=== PATIENT | male | born 1960 | race African-American/Black ===

== ENCOUNTER 2016-12-11 12:22 | Inpatient (IN) ==
[2016-12-11] MEDS ORDERED: DILTIAZEM 50 MG/10 ML VIAL IV STA (12:43)
[2016-12-11] MEDS ORDERED: DILTIAZEM 50 MG/10 ML VIAL IV ONE (12:49)
[2016-12-11] MEDS ORDERED: DILTIAZEM 100 MG VIAL.ADD IV ONE (12:49)
[2016-12-11 12:57] LABS: Basophils # 0.1 10*3/uL (0.0-0.2); Basophils % 0.7 % (0.0-0.8); Eosinophils # 0.2 10*3/uL (0.0-0.87); Eosinophils % 3.2 % (0.00-10.9); Hematocrit 41.6 VOL% (42.0-52.0); Hemoglobin 14.4 GM/DL (14.0-18.0); Immature Granulocytes % 0.6 %; Immature Granulocytes Absolute 0.04 #; Lymphocytes # 3.2 10*3/uL (1.4-4.0); Lymphocytes % 44.5 % (21.2-54.2); Mean Corpuscular HGB Conc 34.6 GM/DL (32-36); Mean Corpuscular Hemoglobin 30 PG (27-34); Mean Corpuscular Volume 85.4 FL (87-102); Mean Platelet Volume 9.9 FL (9.6-12.0); Monocytes # 0.8 10*3/uL (0.11-0.8); Monocytes % 10.6 % (1.7-12.7); Neutrophils # 2.9 10*3/uL (1.4-7.4); Neutrophils % 40.4 % (38.7-73.9); Platelet Count 217 T/CUMM (130-400); Red Blood Count 4.87 MC/CUMM (3.8-5.5); Red Cell Distribution Width 12.7 % (9.3-17.3); White Blood Count 7.2 T/CUMM (4-12)
--- NOTE | 2016-12-11 12:59 | Emergency Department Note ---
Luis Julian Brittany, am scribing for, and in the presence of, Yossi Kiser MD 12: 52. Margi Julian James D, MD, personally performed the services described in this documentation, ascribed by Kaylen Smith in my presence, and it is both accurate and complete . Arrival - Arrival Stated Complaint: atri flutter Mode of Arrival: Ambulatory Limitations: No Limitations Source: Patient, RN Notes Reviewed - History of Present Illness HPI Narrative: This is a 56 y/o black male, who presents to the ED for further evaluation of possible atrial flutter. He states he noticed the Sx started 4 days ago while getting his hair cut. He states 4 days ago while getting a haircut he became diaphoretic and nausea and then vomited. He denies any chest pain. He denies any blood in the vomit. He is not taking any blood thinners. He states today he was being seen at his PCP's office, Dr. Umana's office when he noticed his heart was "naa beating fast.". Pt has no other complaints/pain in the ED at this time. Pt has a PMHx of HTN. Pt denies a surgical hx. Pt denies a family medical Hx. Pt denies a social hx. Onset (ago): day(s) (Started 4 days ago) Consistency: constant Severity: moderate, severe Allergies/Adverse Reactions: Allergies Allergy/AdvReac Type Severity Reaction Status Date / Time Influenza Virus Vaccines AdvReac Weakness Verified 12/11/16 12:46 Review of System - Review of System 12 point system: reviewed and no additional remarkable complaints except as stated - Review of System Constitutional: Present: diaphoresis Cardiovascular: Present: other (Tachycardiac). Absent: chest pain Gastrointestinal: Present: nausea, vomiting Medical,Surgical,& Family Hx - Medical History Cardio: History of: Hypertension Exam Vital Signs: Vital Signs Temperature 98.6 F 12/11/16 12:40 Pulse Rate 143 H 12/11/16 12:40 Respiratory Rate 18 12/11/16 12:40 Blood Pressure 154/118 12/11/16 12:40 O2 Sat by Pulse Oximetry 96 12/11/16 12:40 GENERAL: This is a well-nourished well-developed black male in no apparent distress. VITAL SIGNS: Reviewed HEENT: Head is atraumatic and normocephalic. Pupils are equal round react to light. Extraocular movements are intact. Oropharynx is benign with moist mucous membranes. NECK: Neck is soft and supple without tenderness. There are no masses. There is no lymphadenopathy. LUNGS: Lungs are clear to auscultation. Chest rises symmetrically. There is no chest wall tenderness. CV: Heart is rapid rate regular without murmurs rubs or gallops. ABDOMEN: Abdomen is soft, nontender to palpation. There are no abdominal abnormal masses palpated. There is no organomegaly. Bowel sounds are present and active. SKIN: Skin is warm and dry. No rash. EXTREMITIES: Patient has full range of motion without tenderness. There is no pedal edema. NEUROLOGIC: Awake alert and oriented 4. Cranial nerves II through XII are grossly intact. Motor is 5 over 5 in all extremities bilaterally. Course Course Narrative: Patient was given Cardizem bolus and infusion while in the emergency department. Results - Labs CBC & BMP: 12/11/16 12:46 12/11/16 12:46 Lab Results: I have reviewed the patients labs Labs: Laboratory Tests 12/11/16 12/11/16 12:46 12:46 Troponin I < 0.015 B-Natriuretic Peptide 172 H - EKG EKG results: interpreted by ERMD - Impressions EKG: Atrial flutter with varying degrees of block, rate 134, nonspecific ST-T wave changes, left axis deviation. Nonspecific intraventricular conduction delay. - Diagnostic Findings Procedure: Chest x-ray: image reviewed by me Critical Care Time Critical Care Time: No Disposition Clinical Impression: Atrial flutter, Essential hypertension Case discussed with: patient Condition: Stable
[2016-12-11] MEDS: DILTIAZEM INJ 100 MG in SODIUM CHLORIDE 0.9% 100 ML IV SCH (13:02)
[2016-12-11 13:15] LABS: PT Patient Result 10.7 SECS; Partial Thromboplastin Time 28.7 SECS (0-40)
--- NOTE | 2016-12-11 13:23 | XRay Report ---
Portable chest Date: 12/11/2016 Clinical history: Shortness of breath Comparison: 02/05/2014 Technique: Portable AP sitting chest Findings: The heart is borderline in size. Expiratory chest with interval resolution of the right middle lobe pneumonia. Stable mediastinum with no acute osseous findings. Impression: Limited expiratory chest. Resolution of previously noted right middle lobe pneumonia. PROCEDURE INTERPRETED AT [facility] DEPARTMENT OF RADIOLOGY Final Report Signed by: Dr. Naomy Marquez
[2016-12-11 13:30] LABS: Alanine Aminotransferase 19 U/L (16-61); Albumin 3.7 G/DL (3.4-5.0); Alkaline Phosphatase 71 U/L (45-117); Aspartate Amino Transferase 14 U/L (0-37); Blood Urea Nitrogen 25 MG/DL (7-18); Calcium 9.4 MG/DL (8.5-10.1); Glucose 98 MG/DL (74-106); Magnesium 2.4 MG/DL (1.8-2.4); Osmolality,Calculated 286.1 MOS/KG (273-304); Potassium 3.6 MMOL/L (3.5-5.1); Sodium 142 MMOL/L (136-145); Total Protein 7.3 G/DL (6.4-8.3); Troponin I Only < 0.015 NG/ML (0.00-0.045)
--- NOTE | 2016-12-11 13:31 | EKG Report ---
Stationary ECG Study [facility] ER Test Date: 12/11/2016 12:31:30 PM Pat Name: MARIE MURRELL Department: Room: Gender: M Surgical Pathologist: : 1960 Requested by: Yossi Mane Order Number: [id number] Reading MD: WALT VASQUEZ Intervals [place] Rate: 134 P: 999 AL: 165 QRS: -25 QRSD: 120 T: -47 QT: 328 QTc: 407 Interpretive Statements ATRIAL FLUTTER LEFT AXIS DEVIATION T WAVE ABNORMALITY, Electronically Signed On 12-11-16 15:44:45 CDT by WALT VASQUEZ [email or web address]
[2016-12-11 13:37] LABS: Barbiturates Screen,Urine Negative (Negative); Benzodiazepines Screen,Urine Negative (Negative); Cannabinoid Screen,Urine Negative (Negative); Opiate Screen,Urine Negative (Negative); Phencyclidine Screen,Urine Negative (Negative)
[2016-12-11 13:38] LABS: Urine Color Yellow (Yellow)
[2016-12-11 13:39] LABS: Apearance,Urine Clear (Clear); Bilirubin,Urine 0 mg/dL (Negative); Blood, Urine Trace mg/dL (Negative); Glucose,Urine (UA) Negative (Negative); Ketones,Urine Negative (Negative); Nitrite,Urine Negative (Negative); Protein,Urine Negative
[2016-12-11 13:40] LABS: Mucus,Urine Slight /LPF (Occasional); RBC,Urine 0-3 /HPF (0-4); WBC,Urine 0-2 /HPF (0-6)
[2016-12-11] MEDS ORDERED: MORPHINE 2 MG/1 ML SYRINGE IV PRN (15:48)
[2016-12-11] MEDS ORDERED: ONDANSETRON 4 MG/2 ML VIAL IV PRN (15:48)
[2016-12-11] MEDS ORDERED: ACETAMINOPHEN 325 MG TABLET PO PRN (15:48)
[2016-12-11] MEDS ORDERED: ENOXAPARIN 40 MG/0.4 ML SYRINGE SUBCUT SCH (16:00)
--- NOTE | 2016-12-11 16:05 | Hospitalist History & Physical ---
<Tera Nieves - Last Filed: 12/11/16 15:26> Assessment and Plan - Time spent with patient Time spent with patient: Greater than 30 minutes (1) Atrial flutter with rapid ventricular response Status: Acute Assessment and plan: 56-year-old Vietnamese male with risk factors significant for: Hypertension, family history obesity. Presents to the ED today from his PCP office for further evaluation of atrial flutter with RVR. Started on Cardizem drip in ER with little effect in part due to patient's anxiety. Admit to telemetry. Echocardiogram has been ordered. Cardiology has been consulted. We appreciate the assistance. Current Visit: Yes (2) Anxiety Status: Acute Assessment and plan: Patient became very anxious and upset after hearing that he needs to stay in the hospital. Consider anxiolytics. Current Visit: Yes (3) Essential hypertension Status: Acute Assessment and plan: Continue home medications. Continue to monitor BP and adjust medications accordingly. Given the patient's atrial flutter, consider rate reducing agents and anticoagulation in addition to vasodilators. Current Visit: Yes History of Present Illness Chief complaint: atrial flutter with RVR History of present illness: Mr. Ramos is a 56 year old male with a past medical history significant for hypertension who presents to the ED today from his PCP's office for further evaluation of atrial flutter with RVR. 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 He states that he initially became diaphoretic with nausea and vomiting while getting a haircut four days ago. He waited until Saturday to call is PCP, Dr. Umana, who couldn't see him until this morning. Upon seeing his PCP , the patient was found to be in atrial flutter and was sent directly to the [facility] ED for further evaluation. On arrival at the ED, the patient was confirmed to be in atrial flutter with RVR and was started on a cardizem infusion. The patient denies headache, chest pain, palpitations, syncope, shortness of breath , fatigue, current nausea or vomiting, edema. The patient did note that he has been told he has a heart murmur but does not recall which murmur was identified. After discussing the patient's situation with him, he became quite upset and tearful stating he "knew it was badder than they told him". CXR is negative for any cardiopulmonary process. EKG shows atrial flutter with left axis deviation and T wave abnormality. Lab work shows WBC 7.2, RBC 4.7, hemoglobin 14.4, hematocrit 41.6, platelet 217, INR 1.0, sodium 142, potassium 3.6, chloride 107, BUN 25, creatinine 1.60, troponin I <0.015, BNP 172. Urinalysis is negative for infection. UDS is negative. After discussion with Dr. Kiser, ER physician, and Dr. Vora, admitting physician, the patient will be admitted for further evaluation and treatment. CODE STATUS was discussed; patient is a full code. Home medications have be reviewed and reconciled. Home Medications Medication Instructions Recorded Confirmed Type Amlodipine Besylate [Amlodipine 5 mg PO QAM 12/11/16 12/11/16 History Besylate] Aspirin EC Tab 81 mg PO QOTHER DAY 12/11/16 12/11/16 History Allergies Allergy/AdvReac Type Severity Reaction Status Date / Time Influenza Virus Vaccines AdvReac Weakness Verified 12/11/16 12:46 Medical,Surgical,& Family Hx - Medical History Cardio: History of: Hypertension - Family History Family History: Reports;: Family Hypertension, Family Stroke - Social History Smoking Status: Never smoker Frequency of Alcohol Use: None Type of Drug Use: None Marital Status: Single Lives With:: Significant Other Functional capacity: independent ambulation 12 point system: reviewed and no additional remarkable complaints except as stated Exam - Constitutional Vitals: Period Temp Pulse Resp BP Sys/Liang Pulse Ox Last 24 Hr 98.6 F 143 18 154/118 96 Exam: General appearance: overweight, disheveled - Head Head exam: Present: normocephalic, atraumatic - Eye Eye exam: Present: EOMI. Absent: conjunctival injection, nystagmus Pupils: Present: JESICA, normal accommodation - ENT ENT exam: Present: normal exam, normal external ear exam - Neck Neck exam: Present: normal inspection. Absent: lymphadenopathy, tenderness, thyromegaly - Respiratory Respiratory exam: Present: clear to auscultation bilaterally. Absent: rales, rhonchi, wheezes - Cardiovascular Cardiovascular exam: Present: atrial flutter with RVR. Absent: carotid bruit, gallop, rubs - GI/Abdominal GI/Abdominal exam: Present: normal bowel sounds. Absent: ascites, distended, mass - Extremities Exam Extremities exam: Present: normal inspection, normal capillary refill. Absent: edema - Back Exam Back exam: Absent: CVA tenderness (L), CVA tenderness (R) - Neurological Exam Neurological exam: Present: alert, oriented X3, CN II-XII intact, reflexes normal - Psychiatric Psychiatric exam: Present: anxiety - Skin Skin exam: Present: normal color, warm, dry Results - Labs CBC & BMP: 12/11/16 12:46 12/11/16 12:46 Lab Results: I have reviewed the past 24 hour labs - EKG EKG results: interpreted by TERESO (Atrial flutter with RVR) - Diagnostic Findings Procedure: Chest x-ray: image reviewed by me, report reviewed by me (Negative) <Frankie Vora - Last Filed: 12/11/16 17:45> History of Present Illness History of present illness: Patient seen and examined independently of CLAIMS CLERK Sorenson, agree with history, assessment and plan as documented. Admitted with atrial flutter with uncontrolled rate. Cardiology consulted. On dilt infusion. Also started on po dilt and eliquis. Exam - Constitutional Vitals: Period Temp Pulse Resp BP Sys/Liang Pulse Ox Last 24 Hr 98.6 F 57-143 17-18 136-163/86-118 96-98 Results - Labs CBC & BMP: 12/11/16 12:46 12/11/16 12:46
[2016-12-11] MEDS ORDERED: POTASSIUM CHLORIDE 20 MEQ TABLET PO PRN (16:56)
[2016-12-11] MEDS ORDERED: DILTIAZEM CD 240 MG CAPSULE PO SCH (17:00)
--- NOTE | 2016-12-11 17:35 | Cardiology Consult Note ---
Assessment and Plan - Time spent with patient Time spent with patient: Greater than 30 minutes (Due to assessment, plan, and documentation.) (1) Atrial flutter with rapid ventricular response Status: Acute Assessment and plan: See plan of care listed below. Current Visit: Yes (2) Essential hypertension Status: Chronic Assessment and plan: See plan of care listed below. Current Visit: Yes (3) Anxiety Status: Acute Current Visit: Yes History of Present Illness - Data of Consult Patient: new to practice Consult date: 12/11/16 Requesting Physician: Tera Nieves Primary care physician: Gil Perkins - Consult Narrative Reason for consult: new onset atrial flutter History of present illness: Express Clerk: new to Dr. Fried PCP: Dr. Umana Mr. Ramos is being seen in the Emergency Department, room #20. Mr. Ramos is a 56 y/o BM with a history of hypertension. Risk factors are significant for: sedentary lifestyle, obesity, hypertension. He has a family history of strokes and hypertension. He is a lifetime nonsmoker. 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 He denies a history of diabetes, hyperlipidemia, cancer, prior stroke, prior HI, or prior seizures. He reports he has been taking blood pressure medication for the past 6 years. Mr. Ramos presented to the emergency room today from Dr. Perkins's office for further evaluation of abnormal EKG which revealed atrial flutter with rapid ventricular response. Upon arrival to our facility, he was noted to have heart rates in the 140s. He was started on IV cardizem drip and admitted to hospital medicine and we were consulted to see him. Mr. Ramos reports that this past Saturday, he was at the [facility] getting his hair cut when he had a sudden onset hot flash, broke out in a sweat, and became nauseated and vomited. He remained nauseated and he had associated palpitations. He denies chest pain, headache, dizziness, lightheadedness, shortness of breath, fatigue, or BLE edema. He denies a history of epistaxis, melena, hematochezia, hematuria, hempoptysis. He tells me that he waited until Saturday to call his PCP but could not get an appointment until today. He continues to feel palpitations. He is not routinely followed by a carry all driver but does report that he had a stress test approximately 14-15 years ago because of his job requirements. Upon arrival to the emergency room, he was noted to have a stable H&H of 14.4 and 41.6. His potassium is 3.6 and we will replace this. His creatinine is 1.6 , magnesium 2.4. BNP is 172. Urine drug screen is negative and urinalysis is unremarkable. We will continue with IV diltiazem for rate control. We will go ahead and start him on oral diltiazem in an attempt to better control his rate. His rates are running between 80s-100s but with the slightest exertion, his rate will jump up to the 130s-140s. ASSESSMENT/PLAN: 1. ATRIAL FLUTTER WITH RVR -continue IV Cardizem, titrating for heart rate less than 100. Start Cardizem CD 240 mg p.o. daily, starting now. We will go ahead and start him on anticoagulation with Eliquis 5 mg p.o. twice daily. CHADSVASC score is 1. We will hold him n.p.o. after midnight in anticipation of possible SADI and cardioversion tomorrow if he is not better rate controlled or has not converted to normal sinus rhythm. Echocardiogram is pending. We will also check lipid panel in the morning. 2. HYPERTENSION - Mildly elevated presently. We will continue home dose of Norvasc in addition to Cardizem. We will continue to monitor and adjust as needed. CC: Frankie Vora MD - Home Medications and Allergies Home Medications: Home Medications Medication Instructions Recorded Confirmed Type Amlodipine Besylate [Amlodipine 5 mg PO QAM 12/11/16 12/11/16 History Besylate] Aspirin EC Tab 81 mg PO QOTHER DAY 12/11/16 12/11/16 History Allergies/Adverse Reactions: Allergies Allergy/AdvReac Type Severity Reaction Status Date / Time Influenza Virus Vaccines AdvReac Weakness Verified 12/11/16 12:46 12 point system: reviewed and no additional remarkable complaints except as stated Medical,Surgical,& Family Hx - Medical History Cardio: History of: Hypertension - Family History Family History: Reports;: Family Hypertension, Family Stroke - Social History Smoking Status: Never smoker Frequency of Alcohol Use: None Type of Drug Use: None Physical Examination Vital Signs Temp Pulse Resp BP Pulse Ox 98.6 F 143 H 18 154/118 96 12/11/16 12:40 12/11/16 12:40 12/11/16 12:40 12/11/16 12:40 12/11/16 12:40 Exam: General appearance: Pleasant and cooperative. Overweight, no acute distress. Head exam: Present: normal inspection, normocephalic, atraumatic. Absent: hematoma, laceration Eye exam: Present: EOMI. Absent: conjunctival injection, nystagmus, periorbital swelling, scleral icterus, laceration to eyelids Pupils: Present: PERRL. Absent: constricted, dilated, fixed, irregular, unequal ENT exam: Present: normal exam, normal external ear exam Neck exam: Present: normal inspection. Absent: lymphadenopathy, meningismus, tenderness, thyromegaly, carotid bruit Respiratory exam: Present: clear to auscultation bilaterally. Absent: accessory muscle use, chest wall tenderness, rales, rhonchi, wheezing. Cardiovascular exam: Present: Irregular rate and rhythm. Absent: gallop, JVD, rubs, murmur GI/Abdominal exam: Present: normal bowel sounds, soft. Absent: distended, firm , guarding, hernia, mass, tenderness, rebound. Extremities exam: Present: normal inspection, normal capillary refill. Upper extremity pulses 2+. Lower extremity pulses 2+. Absent: calf tenderness, edema Musculoskeletal: Present: No Fluid Collection, No Pain, Normal Range of Motion Back exam: Present: normal inspection. Absent: muscle spasm, vertebral tenderness Neurological exam: Present: alert, oriented X3, grossly intact without resting or essential tremor Psychiatric exam: Present: normal affect, normal mood Skin exam: Present: normal color, warm, dry, intact. Absent: cyanosis, diaphoretic, rash, urticaria Result/EKG - Labs CBC & BMP: 12/11/16 12:46 12/11/16 12:46 Lab Results: I have reviewed the past 24 hour labs Labs: Laboratory Results - last 24 hr 12/11/16 12/11/16 12/11/16 12:46 12:46 12:46 WBC 7.2 RBC 4.87 Hgb 14.4 Hct 41.6 L MCV 85.4 L MCH 30 MCHC 34.6 RDW 12.7 Plt Count 217 MPV 9.9 Neut % (Auto) 40.4 Lymph % (Auto) 44.5 [place] % (Auto) 10.6 Eos % (Auto) 3.2 Baso % (Auto) 0.7 Neut # (Auto) 2.9 Lymph # (Auto) 3.2 [place] # (Auto) 0.8 Eos # (Auto) 0.2 Baso # (Auto) 0.1 Immature Gran % 0.6 Nucleated RBC % 0.0 Immature Gran # 0.04 Nucleated RBCs # 0.00 Immature Plt Fraction 0.0 INR 1.0 PT Patient/Control Mix 10.7 Circ Anticoag PTT 28.7 Sodium 142 Potassium 3.6 Chloride 107 Carbon Dioxide 28 Anion Gap 10.6 BUN 25 H Creatinine 1.60 H GFR Calculation 75 BUN/Creatinine Ratio 15.00 Glucose 98 Calculated Osmolality 286.1 Calcium 9.4 Magnesium 2.4 Total Bilirubin 0.50 AST 14 ALT 19 Alkaline Phosphatase 71 Troponin I < 0.015 B-Natriuretic Peptide Total Protein 7.3 Albumin 3.7 Globulin 3.6 H Albumin/Globulin Ratio 1.0 L Urine Color Urine Appearance Urine pH Ur Specific [place] Urine Protein Urine Glucose (UA) Urine Ketones Urine Blood Urine Nitrate Urine Bilirubin Urine Urobilinogen Urine Leukocytes Urine RBC Urine WBC Urine Mucus Ur Culture Indicated? Urine Opiates Screen Ur Barbiturates Screen Ur Phencyclidine Scrn U Amphetamine/Methamph U Benzodiazepines Scrn U Cocaine Metab Screen U Cannabinoids Screen 12/11/16 12/11/16 12/11/16 12:46 12:46 12:46 WBC RBC Hgb Hct MCV MCH MCHC RDW Plt Count MPV Neut % (Auto) Lymph % (Auto) [place] % (Auto) Eos % (Auto) Baso % (Auto) Neut # (Auto) Lymph # (Auto) [place] # (Auto) Eos # (Auto) Baso # (Auto) Immature Gran % Nucleated RBC % Immature Gran # Nucleated RBCs # Immature Plt Fraction INR PT Patient/Control Mix Circ Anticoag PTT Sodium Potassium Chloride Carbon Dioxide Anion Gap BUN Creatinine GFR Calculation BUN/Creatinine Ratio Glucose Calculated Osmolality Calcium Magnesium Total Bilirubin AST ALT Alkaline Phosphatase Troponin I B-Natriuretic Peptide 172 H Total Protein Albumin Globulin Albumin/Globulin Ratio Urine Color Yellow Urine Appearance Clear Urine pH 5.0 Ur Specific [place] 1.020 Urine Protein Negative Urine Glucose (UA) Negative Urine Ketones Negative Urine Blood Trace Urine Nitrate Negative Urine Bilirubin 0 Urine Urobilinogen 2.0 H Urine Leukocytes Negative Urine RBC 0-3 Urine WBC 0-2 Urine Mucus Slight Ur Culture Indicated? Not indicated Urine Opiates Screen Negative Ur Barbiturates Screen Negative Ur Phencyclidine Scrn Negative U Amphetamine/Methamph Negative U Benzodiazepines Scrn Negative U Cocaine Metab Screen Negative U Cannabinoids Screen Negative - EKG EKG results: interpreted by me (Atrial flutter)
--- NOTE | 2016-12-11 18:00 | ECHO Report ---
Ramos, Marzena Exam Date: 12/11/2016 14:28 Referring Physician: Technologist: Jina Fragoso Age: 56 Ht (in): 74 Wt (lb): 247 Gender: M Exam Location: [facility] Echo Indications: Atrial flutter BP: 154 / 118 HR: 143 Rhythm: Atrial flutter Technical Quality: IMPRESSIONS Left ventricular ejection fraction is estimated at 55-60 %. Mild concentric left ventricular hypertrophy. Mild mitral valve regurgitation. Trace tricuspid valve regurgitation. Mild pulmonary valve regurgitation. MEASUREMENTS (Male / Female) Normal Values 2D ECHO LV Diastolic Diameter PLAX 4.5 cm 4.2 - 5.9 / 3.9 - 5.3 cm LV Systolic Diameter PLAX 3.3 cm LV Fractional Shortening PLAX 28.4 % IVS Diastolic Thickness 1.5 cm 0.6 - 1.0 / 0.6 - 0.9 cm LVPW Diastolic Thickness 1.2 cm 0.6 - 1.0 / 0.6 - 0.9 cm Aortic Root Diameter 3.1 cm LA Systolic Diameter LX 3.7 cm 3.0 - 4.0 / 2.7 - 3.8 cm DOPPLER TR Peak Velocity 234.0 cm/s TR Peak Gradient 21.9 mmHg FINDINGS Left Ventricle Normal left ventricular cavity size. Mild concentric left ventricular hypertrophy. Left ventricular ejection fraction is estimated at 55-60 %. Right Ventricle The right ventricle is normal in size and function. Right Atrium The right atrium is normal in size. Left Atrium The left atrium is normal in size. Mitral Valve Morphologically normal mitral valve. Mild mitral valve regurgitation. Aortic Valve Morphologically normal aortic valve without significant sclerosis or stenosis. There is no aortic regurgitation. Tricuspid Valve Morphologically normal tricuspid valve. Trace tricuspid valve regurgitation. Pulmonic Valve Morphologically normal pulmonic valve. Mild pulmonary valve regurgitation. Pericardium Normal pericardium without effusion. Aorta Normal ascending aorta dimension. Eligio Fried (Electronically Signed) Final Date: 11 December 2016 17:59
[2016-12-11] MEDS: ASCORBIC ACID 500 MG TABLET PO SCH (21:31)
[2016-12-11] MEDS: APIXABAN 5 MG TABLET PO SCH (21:32)
[2016-12-11] MEDS: SOTALOL 80 MG TABLET PO SCH (21:32)
[2016-12-12] MEDS: DILTIAZEM INJ 100 MG in SODIUM CHLORIDE 0.9% 100 ML IV SCH ×2 (01:05→15:36)
[2016-12-12 05:33] LABS: Basophils # 0.1 10*3/uL (0.0-0.2); Basophils % 0.9 % (0.0-0.8); Eosinophils # 0.4 10*3/uL (0.0-0.87); Eosinophils % 5.3 % (0.00-10.9); Hematocrit 40.3 VOL% (42.0-52.0); Hemoglobin 13.7 GM/DL (14.0-18.0); Immature Granulocytes % 0.5 %; Immature Granulocytes Absolute 0.04 #; Lymphocytes # 3.4 10*3/uL (1.4-4.0); Lymphocytes % 42.5 % (21.2-54.2); Mean Corpuscular Hemoglobin 29 PG (27-34); Mean Corpuscular Volume 86.3 FL (87-102); Mean Platelet Volume 10.5 FL (9.6-12.0); Monocytes # 0.8 10*3/uL (0.11-0.8); Monocytes % 9.7 % (1.7-12.7); Neutrophils # 3.3 10*3/uL (1.4-7.4); Neutrophils % 41.1 % (38.7-73.9); Platelet Count 234 T/CUMM (130-400); Red Blood Count 4.67 MC/CUMM (3.8-5.5); Red Cell Distribution Width 12.9 % (9.3-17.3)
[2016-12-12 06:17] LABS: Calcium 9.3 MG/DL (8.5-10.1); Risk Ratio 5.31; VLDL CHOLESTEROL 25.8 MG/DL
--- NOTE | 2016-12-12 07:57 | EKG Report ---
Stationary ECG Study [facility] Test Date: 12/12/2016 7:34:58 AM Pat Name: MARIE MURRELL Department: Room: 285 Gender: M Curtain Stitcher: JAYLON : 1960 Requested by: Nataly Del Valle Order Number: [id number] Reading MD: WALT VASQUEZ Intervals [place] Rate: 62 P: 999 MS: 0 QRS: 13 QRSD: 104 T: 21 QT: 430 QTc: 436 Interpretive Statements ATRIAL FIBRILLATION Electronically Signed On 12-12-16 16:52:32 CDT by WALT VASQUEZ [email or web address]
--- NOTE | 2016-12-12 09:40 | EKG Report ---
Stationary ECG Study [facility] Test Date: 12/11/2016 1:38:42 PM Pat Name: MARIE MURRELL Department: Room: 285 Gender: M Government Clerk: : 1960 Requested by: Yossi Mane Order Number: [id number] Reading MD: WALT VASQUEZ Intervals [place] Rate: 105 P: 999 OR: 0 QRS: -9 QRSD: 122 T: -16 QT: 353 QTc: 414 Interpretive Statements ATRIAL FLUTTER WITH RAPID VENTRICULAR RESPONSE WITH VENTRICULAR PREMATURE COMPLEXE Electronically Signed On 12-12-16 16:39:05 CDT by WLAT VASQUEZ [email or web address]
[2016-12-12] MEDS: APIXABAN 5 MG TABLET PO SCH (10:08)
[2016-12-12] MEDS: SOTALOL 80 MG TABLET PO SCH ×3 (10:08→22:06)
[2016-12-12] MEDS: amLODIPine 5 MG TABLET PO SCH ×2 (10:09→12:21)
[2016-12-12] MEDS: PANTOPRAZOLE 40 MG TABLET PO SCH ×2 (10:10→12:21)
[2016-12-12] MEDS: ASCORBIC ACID 500 MG TABLET PO SCH ×3 (10:10→22:06)
--- NOTE | 2016-12-12 11:33 | Cardiology Progress Note ---
<Quin Hutchinson E - Last Filed: 12/12/16 11:21> Assessment and Plan - Time spent with patient Time spent with patient: Less than 30 minutes (1) Atrial flutter with rapid ventricular response Status: Acute Assessment and plan: See plan of care listed below. Current Visit: Yes (2) Essential hypertension Status: Chronic Assessment and plan: See plan of care listed below. 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 Umana SUMMARY: Mr. Ramos is a 56 y/o BM who was sent to our facility from Dr. Umana' s office for atrial flutter with rapid ventricular response. He was started on IV Diltiazem and admitted to hospital medicine. We were consulted to see him. 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 Dr. Garcia saw him last night in consultation and started him on Sotalol 80mg po BID. Sleep medicine was consulted for evaluation of possible sleep disorder. Echocardiogram on revealed EF 55-60%, mild LVH, mild MR, trace TR, mild WI. DECEMBER 12, 2016 UPDATE: Mr. Ramos had an uneventful night. He denies any complaints presently. He is off of the Cardizem infusion and on Sotalol 80mg po BID. QTC is acceptable, will continue to cycle daily EKGs. He remains in atrial flutter with well controlled rate. Dr. Garcia to follow with further plan and addendum. ASSESSMENT/PLAN: 1. ATRIAL FLUTTER WITH RVR - Continue sotalol 80mg PO BID. Rate is much better controlled although he has not converted to sinus rhythm. Continue daily EKGs. He was started on anticoagulation with Eliquis 5 mg p.o. twice daily. CHADSVASC score is 1. 2. HYPERTENSION - Mildly elevated presently. Continue Norvasc. We will continue to monitor and adjust as needed. Exam (Progress Note) - Constitutional Vitals: Period Temp Pulse Resp BP Sys/Liang Pulse Ox Last 24 Hr 96.4 F-98.6 F 57-143 17-20 120-167/68-118 94-98 Exam: General appearance: Pleasant and cooperative. Overweight, no acute distress. Head exam: Present: normal inspection, normocephalic, atraumatic. Absent: hematoma, laceration Eye exam: Present: EOMI. Absent: conjunctival injection, nystagmus, periorbital swelling, scleral icterus, laceration to eyelids Pupils: Present: PERRL. Absent: constricted, dilated, fixed, irregular, unequal ENT exam: Present: normal exam, normal external ear exam Neck exam: Present: normal inspection. Absent: lymphadenopathy, meningismus, tenderness, thyromegaly, carotid bruit Respiratory exam: Present: clear to auscultation bilaterally. Absent: accessory muscle use, chest wall tenderness, rales, rhonchi, wheezing. Cardiovascular exam: Present: Irregular rate and rhythm. Absent: gallop, JVD, rubs GI/Abdominal exam: Present: normal bowel sounds, soft. Absent: distended, firm , guarding, hernia, mass, tenderness, rebound. Extremities exam: Present: normal inspection, normal capillary refill. Upper extremity pulses 2+. Lower extremity pulses 2+. Absent: calf tenderness, edema Musculoskeletal: Present: No Fluid Collection, No Pain, Normal Range of Motion Back exam: Present: normal inspection. Absent: muscle spasm, vertebral tenderness Neurological exam: Present: alert, oriented X3, grossly intact without resting or essential tremor Psychiatric exam: Present: normal affect, normal mood Skin exam: Present: normal color, warm, dry, intact. Absent: cyanosis, diaphoretic, rash, urticaria Result/EKG - Labs CBC & BMP: 12/12/16 04:48 12/12/16 04:48 Lab Results: I have reviewed the past 24 hour labs Labs: Laboratory Results - last 24 hr 12/11/16 12/11/16 12/11/16 12:46 12:46 12:46 WBC 7.2 RBC 4.87 Hgb 14.4 Hct 41.6 L MCV 85.4 L MCH 30 MCHC 34.6 RDW 12.7 Plt Count 217 MPV 9.9 Neut % (Auto) 40.4 Lymph % (Auto) 44.5 [place] % (Auto) 10.6 Eos % (Auto) 3.2 Baso % (Auto) 0.7 Neut # (Auto) 2.9 Lymph # (Auto) 3.2 [place] # (Auto) 0.8 Eos # (Auto) 0.2 Baso # (Auto) 0.1 Immature Gran % 0.6 Nucleated RBC % 0.0 Immature Gran # 0.04 Nucleated RBCs # 0.00 Immature Plt Fraction 0.0 INR 1.0 PT Patient/Control Mix 10.7 Circ Anticoag PTT 28.7 Sodium 142 Potassium 3.6 Chloride 107 Carbon Dioxide 28 Anion Gap 10.6 BUN 25 H Creatinine 1.60 H GFR Calculation 75 BUN/Creatinine Ratio 15.00 Glucose 98 Calculated Osmolality 286.1 Calcium 9.4 Magnesium 2.4 Total Bilirubin 0.50 AST 14 ALT 19 Alkaline Phosphatase 71 Troponin I < 0.015 B-Natriuretic Peptide Total Protein 7.3 Albumin 3.7 Globulin 3.6 H Albumin/Globulin Ratio 1.0 L Triglycerides Cholesterol LDL Cholesterol VLDL Cholesterol HDL Cholesterol Heart Disease Risk Ratio Urine Color Urine Appearance Urine pH Ur Specific [place] Urine Protein Urine Glucose (UA) Urine Ketones Urine Blood Urine Nitrate Urine Bilirubin Urine Urobilinogen Urine Leukocytes Urine RBC Urine WBC Urine Mucus Ur Culture Indicated? Urine Opiates Screen Ur Barbiturates Screen Ur Phencyclidine Scrn U Amphetamine/Methamph U Benzodiazepines Scrn U Cocaine Metab Screen U Cannabinoids Screen 12/11/16 12/11/16 12/11/16 12:46 12:46 12:46 WBC RBC Hgb Hct MCV MCH MCHC RDW Plt Count MPV Neut % (Auto) Lymph % (Auto) [place] % (Auto) Eos % (Auto) Baso % (Auto) Neut # (Auto) Lymph # (Auto) [place] # (Auto) Eos # (Auto) Baso # (Auto) Immature Gran % Nucleated RBC % Immature Gran # Nucleated RBCs # Immature Plt Fraction INR PT Patient/Control Mix Circ Anticoag PTT Sodium Potassium Chloride Carbon Dioxide Anion Gap BUN Creatinine GFR Calculation BUN/Creatinine Ratio Glucose Calculated Osmolality Calcium Magnesium Total Bilirubin AST ALT Alkaline Phosphatase Troponin I B-Natriuretic Peptide 172 H Total Protein Albumin Globulin Albumin/Globulin Ratio Triglycerides Cholesterol LDL Cholesterol VLDL Cholesterol HDL Cholesterol Heart Disease Risk Ratio Urine Color Yellow Urine Appearance Clear Urine pH 5.0 Ur Specific [place] 1.020 Urine Protein Negative Urine Glucose (UA) Negative Urine Ketones Negative Urine Blood Trace Urine Nitrate Negative Urine Bilirubin 0 Urine Urobilinogen 2.0 H Urine Leukocytes Negative Urine RBC 0-3 Urine WBC 0-2 Urine Mucus Slight Ur Culture Indicated? Not indicated Urine Opiates Screen Negative Ur Barbiturates Screen Negative Ur Phencyclidine Scrn Negative U Amphetamine/Methamph Negative U Benzodiazepines Scrn Negative U Cocaine Metab Screen Negative U Cannabinoids Screen Negative 12/12/16 12/12/16 04:48 04:48 WBC 8.0 RBC 4.67 Hgb 13.7 L Hct 40.3 L MCV 86.3 L MCH 29 MCHC 34.0 RDW 12.9 Plt Count 234 MPV 10.5 Neut % (Auto) 41.1 Lymph % (Auto) 42.5 [place] % (Auto) 9.7 Eos % (Auto) 5.3 Baso % (Auto) 0.9 H Neut # (Auto) 3.3 Lymph # (Auto) 3.4 [place] # (Auto) 0.8 Eos # (Auto) 0.4 Baso # (Auto) 0.1 Immature Gran % 0.5 Nucleated RBC % 0.0 Immature Gran # 0.04 Nucleated RBCs # 0.00 Immature Plt Fraction 0.0 INR PT Patient/Control Mix Circ Anticoag PTT Sodium 143 Potassium 4.0 Chloride 108 H Carbon Dioxide 25 Anion Gap 14.0 BUN 21 H Creatinine 1.30 GFR Calculation 95 BUN/Creatinine Ratio 16.00 Glucose 102 Calculated Osmolality 287.0 Calcium 9.3 Magnesium Total Bilirubin AST ALT Alkaline Phosphatase Troponin I B-Natriuretic Peptide Total Protein Albumin Globulin Albumin/Globulin Ratio Triglycerides 129 Cholesterol 186 LDL Cholesterol 132.0 VLDL Cholesterol 25.8 HDL Cholesterol 35 L Heart Disease Risk Ratio 5.31 Urine Color Urine Appearance Urine pH Ur Specific [place] Urine Protein Urine Glucose (UA) Urine Ketones Urine Blood Urine Nitrate Urine Bilirubin Urine Urobilinogen Urine Leukocytes Urine RBC Urine WBC Urine Mucus Ur Culture Indicated? Urine Opiates Screen Ur Barbiturates Screen Ur Phencyclidine Scrn U Amphetamine/Methamph U Benzodiazepines Scrn U Cocaine Metab Screen U Cannabinoids Screen - EKG EKG results: interpreted by me (atrial flutter with well controlled ventricular response) <Vernon Garcia - Last Filed: 12/12/16 11:38> Cardiology - PN: Subj Interval history: Cardiology addendum. Chart examined patient reviewed and discussed with nurse Quin Hutchinson NP. Telemetry shows atrial flutter controlled rate Echo showed ejection fraction of 55-60% with LVH and mild TR Blood pressure 140/80 Plan Continue sotalol 80 mg twice daily Continue Eliquis 5 mg twice daily Exam (Progress Note) - Constitutional Vitals: Period Temp Pulse Resp BP Sys/Liang Pulse Ox Last 24 Hr 96.4 F-98.6 F 57-143 17-20 120-167/68-118 94-98 Result/EKG - Labs CBC & BMP: 12/12/16 04:48 12/12/16 04:48 Labs: Laboratory Results - last 24 hr 12/11/16 12/11/16 12/11/16 12:46 12:46 12:46 WBC 7.2 RBC 4.87 Hgb 14.4 Hct 41.6 L MCV 85.4 L MCH 30 MCHC 34.6 RDW 12.7 Plt Count 217 MPV 9.9 Neut % (Auto) 40.4 Lymph % (Auto) 44.5 [place] % (Auto) 10.6 Eos % (Auto) 3.2 Baso % (Auto) 0.7 Neut # (Auto) 2.9 Lymph # (Auto) 3.2 [place] # (Auto) 0.8 Eos # (Auto) 0.2 Baso # (Auto) 0.1 Immature Gran % 0.6 Nucleated RBC % 0.0 Immature Gran # 0.04 Nucleated RBCs # 0.00 Immature Plt Fraction 0.0 INR 1.0 PT Patient/Control Mix 10.7 Circ Anticoag PTT 28.7 Sodium 142 Potassium 3.6 Chloride 107 Carbon Dioxide 28 Anion Gap 10.6 BUN 25 H Creatinine 1.60 H GFR Calculation 75 BUN/Creatinine Ratio 15.00 Glucose 98 Calculated Osmolality 286.1 Calcium 9.4 Magnesium 2.4 Total Bilirubin 0.50 AST 14 ALT 19 Alkaline Phosphatase 71 Troponin I < 0.015 B-Natriuretic Peptide Total Protein 7.3 Albumin 3.7 Globulin 3.6 H Albumin/Globulin Ratio 1.0 L Triglycerides Cholesterol LDL Cholesterol VLDL Cholesterol HDL Cholesterol Heart Disease Risk Ratio Urine Color Urine Appearance Urine pH Ur Specific [place] Urine Protein Urine Glucose (UA) Urine Ketones Urine Blood Urine Nitrate Urine Bilirubin Urine Urobilinogen Urine Leukocytes Urine RBC Urine WBC Urine Mucus Ur Culture Indicated? Urine Opiates Screen Ur Barbiturates Screen Ur Phencyclidine Scrn U Amphetamine/Methamph U Benzodiazepines Scrn U Cocaine Metab Screen U Cannabinoids Screen 12/11/16 12/11/16 12/11/16 12:46 12:46 12:46 WBC RBC Hgb Hct MCV MCH MCHC RDW Plt Count MPV Neut % (Auto) Lymph % (Auto) [place] % (Auto) Eos % (Auto) Baso % (Auto) Neut # (Auto) Lymph # (Auto) [place] # (Auto) Eos # (Auto) Baso # (Auto) Immature Gran % Nucleated RBC % Immature Gran # Nucleated RBCs # Immature Plt Fraction INR PT Patient/Control Mix Circ Anticoag PTT Sodium Potassium Chloride Carbon Dioxide Anion Gap BUN Creatinine GFR Calculation BUN/Creatinine Ratio Glucose Calculated Osmolality Calcium Magnesium Total Bilirubin AST ALT Alkaline Phosphatase Troponin I B-Natriuretic Peptide 172 H Total Protein Albumin Globulin Albumin/Globulin Ratio Triglycerides Cholesterol LDL Cholesterol VLDL Cholesterol HDL Cholesterol Heart Disease Risk Ratio Urine Color Yellow Urine Appearance Clear Urine pH 5.0 Ur Specific [place] 1.020 Urine Protein Negative Urine Glucose (UA) Negative Urine Ketones Negative Urine Blood Trace Urine Nitrate Negative Urine Bilirubin 0 Urine Urobilinogen 2.0 H Urine Leukocytes Negative Urine RBC 0-3 Urine WBC 0-2 Urine Mucus Slight Ur Culture Indicated? Not indicated Urine Opiates Screen Negative Ur Barbiturates Screen Negative Ur Phencyclidine Scrn Negative U Amphetamine/Methamph Negative U Benzodiazepines Scrn Negative U Cocaine Metab Screen Negative U Cannabinoids Screen Negative 12/12/16 12/12/16 04:48 04:48 WBC 8.0 RBC 4.67 Hgb 13.7 L Hct 40.3 L MCV 86.3 L MCH 29 MCHC 34.0 RDW 12.9 Plt Count 234 MPV 10.5 Neut % (Auto) 41.1 Lymph % (Auto) 42.5 [place] % (Auto) 9.7 Eos % (Auto) 5.3 Baso % (Auto) 0.9 H Neut # (Auto) 3.3 Lymph # (Auto) 3.4 [place] # (Auto) 0.8 Eos # (Auto) 0.4 Baso # (Auto) 0.1 Immature Gran % 0.5 Nucleated RBC % 0.0 Immature Gran # 0.04 Nucleated RBCs # 0.00 Immature Plt Fraction 0.0 INR PT Patient/Control Mix Circ Anticoag PTT Sodium 143 Potassium 4.0 Chloride 108 H Carbon Dioxide 25 Anion Gap 14.0 BUN 21 H Creatinine 1.30 GFR Calculation 95 BUN/Creatinine Ratio 16.00 Glucose 102 Calculated Osmolality 287.0 Calcium 9.3 Magnesium Total Bilirubin AST ALT Alkaline Phosphatase Troponin I B-Natriuretic Peptide Total Protein Albumin Globulin Albumin/Globulin Ratio Triglycerides 129 Cholesterol 186 LDL Cholesterol 132.0 VLDL Cholesterol 25.8 HDL Cholesterol 35 L Heart Disease Risk Ratio 5.31 Urine Color Urine Appearance Urine pH Ur Specific [place] Urine Protein Urine Glucose (UA) Urine Ketones Urine Blood Urine Nitrate Urine Bilirubin Urine Urobilinogen Urine Leukocytes Urine RBC Urine WBC Urine Mucus Ur Culture Indicated? Urine Opiates Screen Ur Barbiturates Screen Ur Phencyclidine Scrn U Amphetamine/Methamph U Benzodiazepines Scrn U Cocaine Metab Screen U Cannabinoids Screen
--- NOTE | 2016-12-12 12:37 | Sleep Medicine Consult ---
Assessment and Plan (1) Unspecified sleep apnea Status: Acute Assessment and plan: Mr. Ramos has symptoms such as abnormal breathing and choking sensations during sleep as well as loud, disruptive snoring that are suggestive for underlying obstructive sleep apnea. With his positive medical history of not only esophageal reflux disease but also hypertension and now, atrial flutter, I recommend further evaluation. I discussed obstructive sleep apnea as well as the testing and treatments that are recommended. He verbalized understanding and does wish to continue with further workup. I will order an HSAT for tonight to rule out underlying sleep disorder. Current Visit: Yes History of Present Illness Chief complaint: hx of snoring and abnormal breatihng during sleep History of present illness: Mr. Ramos is a pleasant 56 year old male who was admitted on 12/10/2016 with new onset atrial flutter with rapid ventricular response. He states he went to his primary care provider yesterday due to uncontrolled blood pressure and he found that his heart rate was irregular. He has been evaluated and treated by cardiology and is feeling better overall. Sleep medicine was consulted as his arrhythmia was a new occurrence. He had a positive stop bang sleep questionnaire with a positive screening of 5 out of 8. He does have a long history of having loud, disruptive snoring and abnormal breathing during his sleep. His significant other often "elbows him" throughout the night in hopes that he will awaken and change position. He often awakens with feelings of "strangulation" and admits his reflux is much worse during sleep time. He has an unusual work schedule and typically reports to work around 2:30 AM but is off work by 11 AM. He eats lunch and often takes an afternoon nap. He averages around 8 hours of sleep per day and does awaken refreshed. He denies any episodes of sleepiness or fatigue and adamantly denies any episodes of drowsy driving. His [place] sleepiness score today is 6. He does sleep propped on 2 pillows due to his significant reflux disease. He denies awakening with any morning headaches but does often feel nauseated in the morning time. Years ago he underwent sinus surgery by Dr. Robert Layne and reports that his tongue and upper palate were "trimmed". He continues to have frequent sinus congestion despite this surgery and often gets choked while drinking fluids due to airway surgery. He does maintain an active lifestyle and tries to stay fit physically. Home Medications Medication Instructions Recorded Confirmed Type Amlodipine Besylate [Amlodipine 5 mg PO QAM 12/11/16 12/11/16 History Besylate] Aspirin EC Tab 81 mg PO QOTHER DAY 12/11/16 12/11/16 History Allergies Allergy/AdvReac Type Severity Reaction Status Date / Time Influenza Virus Vaccines AdvReac Weakness Verified 12/11/16 12:46 - Constitutional Constitutional: Present: stops breathing during sleep. Absent: daytime sleepiness, headache(s), lethargy - EENT Nose, mouth and throat: Present: nasal congestion. Absent: sinus pressure, sore throat - Cardiovascular Cardiovascular: Absent: chest pain at rest, chest pain with activity, dyspnea, dyspnea on exertion, orthopnea, palpitations - Respiratory Respiratory: Present: cough, snoring. Absent: dyspnea on exertion, wheezing - Gastrointestinal Gastrointestinal: Present: heartburn, nausea. Absent: abdominal pain, change in bowel habits, dysphagia - Genitourinary Genitourinary: Absent: nocturia - Musculoskeletal Musculoskeletal: Absent: back pain, joint swelling, muscle weakness - Neurological Neurological: Absent: behavioral changes, dizziness, frequent falls, headache(s) , syncope - Psychiatric Psychiatric: Absent: anxiety, depression - Endocrine Endocrine: Absent: fatigue Exam ([place]) H&P - Constitutional Vitals: Period Temp Pulse Resp BP Sys/Liang Pulse Ox Last 24 Hr 96.4 F-98.6 F 57-143 17-20 120-167/68-118 94-98 General appearance: normal weight, no acute distress - Head Head exam: Present: normocephalic, atraumatic - Eye Eye exam: Present: EOMI Pupils: Present: JESICA - ENT ENT exam: Present: other (Absent uvula, post surgical chagnes noted, Mallampati class II) - Expanded ENT Exam ENT Exam Throat exam: Absent: post pharyngeal edema, post pharyngeal erythema - Neck Neck exam: Absent: lymphadenopathy, tenderness, thyromegaly - Respiratory Respiratory exam: Present: clear to auscultation bilaterally. Absent: rales, rhonchi, wheezes - Cardiovascular Cardiovascular exam: Present: irregular rhythm. Absent: diastolic murmur, systolic murmur - GI/Abdominal GI/Abdominal exam: Present: normal bowel sounds, soft. Absent: distended, tenderness - Extremities Exam Extremities exam: Present: normal capillary refill, full ROM. Absent: calf tenderness, edema - Neurological Exam Neurological exam: Present: alert, oriented X3, normal gait - Psychiatric Psychiatric exam: Present: normal affect, normal mood - Skin Skin exam: Present: warm, dry Medical,Surgical,& Family Hx - Medical History Cardio: History of: Hypertension - Family History Family History: Reports;: Family Hypertension, Family Stroke - Social History Smoking Status: Never smoker Frequency of Alcohol Use: None Type of Drug Use: None Results - Labs CBC & BMP: 12/12/16 04:48 12/12/16 04:48
--- NOTE | 2016-12-12 16:05 | Hospitalist Progress Note ---
Assessment and Plan (1) Atrial flutter Status: Acute Assessment and plan: Rate is now controlled Dilt infusion now off Cardiology managing po dilt and sotalol Sleep study tonight Current Visit: Yes (2) Essential hypertension Status: Chronic Current Visit: Yes Hospitalist: Subjective Interval history: No acute events overnight. He denies chest pain or sob Exam - Constitutional Vitals: Period Temp Pulse Resp BP Sys/Liang Pulse Ox Last 24 Hr 96.4 F-97.8 F 57-78 17-20 120-167/68-105 94-98 General appearance: over weight - Head Head exam: Present: normocephalic, atraumatic - Eye Eye exam: Present: EOMI Pupils: Present: JESICA - ENT ENT exam: Present: normal exam - Expanded ENT Exam Throat exam: Absent: post pharyngeal edema, post pharyngeal erythema - Neck Neck exam: Present: normal inspection - Respiratory Respiratory exam: Present: clear to auscultation bilaterally. Absent: rhonchi, wheezes - Cardiovascular Cardiovascular exam: Present: irregular rhythm. Absent: tachycardia - GI/Abdominal GI/Abdominal exam: Present: normal bowel sounds, soft. Absent: tenderness, rebound - Extremities Exam Extremities exam: Present: normal inspection - Back Exam Back exam: Present: normal inspection - Neurological Exam Neurological exam: Present: alert, oriented X3 - Psychiatric Psychiatric exam: Present: normal affect, normal mood - Skin Skin exam: Present: warm, intact Results - Labs CBC & BMP: 12/12/16 04:48 12/12/16 04:48
[2016-12-13 06:18] LABS: Basophils # 0.1 10*3/uL (0.0-0.2); Basophils % 0.9 % (0.0-0.8); Eosinophils # 0.4 10*3/uL (0.0-0.87); Eosinophils % 5.6 % (0.00-10.9); Hematocrit 40.2 VOL% (42.0-52.0); Hemoglobin 13.9 GM/DL (14.0-18.0); Immature Granulocytes % 0.6 %; Immature Granulocytes Absolute 0.04 #; Lymphocytes # 3.2 10*3/uL (1.4-4.0); Lymphocytes % 45.2 % (21.2-54.2); Mean Corpuscular HGB Conc 34.6 GM/DL (32-36); Mean Corpuscular Hemoglobin 30 PG (27-34); Mean Corpuscular Volume 86.1 FL (87-102); Mean Platelet Volume 11.1 FL (9.6-12.0); Monocytes # 0.6 10*3/uL (0.11-0.8); Neutrophils # 2.7 10*3/uL (1.4-7.4); Neutrophils % 38.7 % (38.7-73.9); Platelet Count 230 T/CUMM (130-400); Red Blood Count 4.67 MC/CUMM (3.8-5.5); Red Cell Distribution Width 12.7 % (9.3-17.3)
[2016-12-13 06:47] LABS: Calcium 9.1 MG/DL (8.5-10.1); Magnesium 2.4 MG/DL (1.8-2.4); Osmolality,Calculated 284.3 MOS/KG (273-304)
--- NOTE | 2016-12-13 07:22 | EKG Report ---
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
[2016-12-13] MEDS: amLODIPine 5 MG TABLET PO SCH (08:19)
[2016-12-13] MEDS: PANTOPRAZOLE 40 MG TABLET PO SCH (08:20)
[2016-12-13] MEDS: ASCORBIC ACID 500 MG TABLET PO SCH ×2 (08:20→22:05)
[2016-12-13] MEDS: SOTALOL 80 MG TABLET PO SCH ×2 (08:20→22:05)
[2016-12-13] MEDS ORDERED: ASPIRIN EC 81 MG TABLET PO SCH (09:00)
--- NOTE | 2016-12-13 11:26 | Cardiology Progress Note ---
<Quin Hutchinson E - Last Filed: 12/13/16 11:40> Assessment and Plan - Time spent with patient Time spent with patient: Less than 30 minutes (1) Atrial flutter with rapid ventricular response Status: Acute Assessment and plan: See plan of care listed below. Current Visit: Yes (2) Essential hypertension Status: Chronic Assessment and plan: See plan of care listed below. Current Visit: Yes (3) Anxiety Status: Acute Current Visit: Yes Cardiology - PN: Subj Interval history: Thread Roller: new to Dr. Garcia PCP: Dr. Umana SUMMARY: Mr. Ramos is a 56 y/o BM who was sent to our facility from Dr. Umana' s office for atrial flutter with rapid ventricular response. He was started on IV Diltiazem and admitted to hospital medicine. We were consulted to see him. 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 Dr. Garcia saw him last night in consultation and started him on Sotalol 80mg po BID. Sleep medicine was consulted for evaluation of possible sleep disorder. Echocardiogram on revealed EF 55-60%, mild LVH, mild MR, trace TR, mild WI. DECEMBER 13, 2016 UPDATE: Mr. Ramos had an uneventful night. He denies any complaints presently. He is off of the Cardizem infusion and on Sotalol 80mg po BID. QTC is acceptable, will continue to cycle daily EKGs. He remains in atrial flutter with well controlled rate. His blood pressure has been mildly elevated, will increase his dose of Norvasc. He is quite nervous when discussing the possibility of needing a cardioversion to get him back to a normal sinus rhythm. Dr. Garcia to follow with further plan and addendum. ASSESSMENT/PLAN: 1. ATRIAL FLUTTER WITH RVR - Continue sotalol 80mg PO BID. Rate is much better controlled although he has not converted to sinus rhythm. Continue daily EKGs. He appears to be in a fib/flutter rhythm now. QTC remains WNL. He was started on anticoagulation with Eliquis 5 mg p.o. twice daily. CHADSVASC score is 1. 2. HYPERTENSION - Has been mildly elevated. Continue Norvasc and increase dose to 10mg po daily.. We will continue to monitor and adjust as needed. Exam (Progress Note) - Constitutional Vitals: Period Temp Pulse Resp BP Sys/Liang Pulse Ox Last 24 Hr 97.4 F-99.8 F 61-98 18-20 124-147/93-108 94-98 Exam: General appearance: Pleasant and cooperative. Overweight, no acute distress. Head exam: Present: normal inspection, normocephalic, atraumatic. Absent: hematoma, laceration Eye exam: Present: EOMI. Absent: conjunctival injection, nystagmus, periorbital swelling, scleral icterus, laceration to eyelids Pupils: Present: PERRL. Absent: constricted, dilated, fixed, irregular, unequal ENT exam: Present: normal exam, normal external ear exam Neck exam: Present: normal inspection. Absent: lymphadenopathy, meningismus, tenderness, thyromegaly, carotid bruit Respiratory exam: Present: clear to auscultation bilaterally. Absent: accessory muscle use, chest wall tenderness, rales, rhonchi, wheezing. Cardiovascular exam: Present: Irregular rate and rhythm. Absent: gallop, JVD, rubs GI/Abdominal exam: Present: normal bowel sounds, soft. Absent: distended, firm , guarding, hernia, mass, tenderness, rebound. Extremities exam: Present: normal inspection, normal capillary refill. Upper extremity pulses 2+. Lower extremity pulses 2+. Absent: calf tenderness, edema Musculoskeletal: Present: No Fluid Collection, No Pain, Normal Range of Motion Back exam: Present: normal inspection. Absent: muscle spasm, vertebral tenderness Neurological exam: Present: alert, oriented X3, grossly intact without resting or essential tremor Psychiatric exam: Present: normal affect, normal mood Skin exam: Present: normal color, warm, dry, intact. Absent: cyanosis, diaphoretic, rash, urticaria Result/EKG - Labs CBC & BMP: 12/13/16 04:51 12/13/16 04:51 Lab Results: I have reviewed the past 24 hour labs Labs: Laboratory Results - last 24 hr 12/13/16 12/13/16 04:51 04:51 WBC 7.0 RBC 4.67 Hgb 13.9 L Hct 40.2 L MCV 86.1 L MCH 30 MCHC 34.6 RDW 12.7 Plt Count 230 MPV 11.1 Neut % (Auto) 38.7 Lymph % (Auto) 45.2 [place] % (Auto) 9.0 Eos % (Auto) 5.6 Baso % (Auto) 0.9 H Neut # (Auto) 2.7 Lymph # (Auto) 3.2 [place] # (Auto) 0.6 Eos # (Auto) 0.4 Baso # (Auto) 0.1 Immature Gran % 0.6 Nucleated RBC % 0.0 Immature Gran # 0.04 Nucleated RBCs # 0.00 Immature Plt Fraction 0.0 Sodium 141 Potassium 4.0 Chloride 107 Carbon Dioxide 28 Anion Gap 10.0 BUN 23 H Creatinine 1.30 GFR Calculation 95 BUN/Creatinine Ratio 17.00 Glucose 92 Calculated Osmolality 284.3 Calcium 9.1 Magnesium 2.4 - EKG EKG results: interpreted by me (atrial fib/flutter) <Vernon Garcia - Last Filed: 12/13/16 18:48> Cardiology - PN: Subj Interval history: Cardiology addendum. The patient has failed to convert with sotalol 80 mg twice daily and Eliquis. I discussed SADI guided cardioversion with the patient and his and with nurse Giovanni present for the entire discussion.. The procedure, risk benefit reviewed in detail. All questions answered. He agrees proceed in a.m. Plan SADI guided cardioversion in a.m. Continue Eliquis and sotalol Exam (Progress Note) - Constitutional Vitals: Period Temp Pulse Resp BP Sys/Liang Pulse Ox Last 24 Hr 97.4 F-99.8 F 68-98 18-20 124-165/86-108 94-98 Result/EKG - Labs CBC & BMP: 12/13/16 04:51 12/13/16 04:51 Labs: Laboratory Results - last 24 hr 12/13/16 12/13/16 04:51 04:51 WBC 7.0 RBC 4.67 Hgb 13.9 L Hct 40.2 L MCV 86.1 L MCH 30 MCHC 34.6 RDW 12.7 Plt Count 230 MPV 11.1 Neut % (Auto) 38.7 Lymph % (Auto) 45.2 [place] % (Auto) 9.0 Eos % (Auto) 5.6 Baso % (Auto) 0.9 H Neut # (Auto) 2.7 Lymph # (Auto) 3.2 [place] # (Auto) 0.6 Eos # (Auto) 0.4 Baso # (Auto) 0.1 Immature Gran % 0.6 Nucleated RBC % 0.0 Immature Gran # 0.04 Nucleated RBCs # 0.00 Immature Plt Fraction 0.0 Sodium 141 Potassium 4.0 Chloride 107 Carbon Dioxide 28 Anion Gap 10.0 BUN 23 H Creatinine 1.30 GFR Calculation 95 BUN/Creatinine Ratio 17.00 Glucose 92 Calculated Osmolality 284.3 Calcium 9.1 Magnesium 2.4
[2016-12-13] MEDS ORDERED: amLODIPine 10 MG TABLET PO SCH (11:42)
[2016-12-13] MEDS: APIXABAN 5 MG TABLET PO SCH ×2 (12:07→22:06)
[2016-12-13] MEDS ORDERED: hydrALAZINE 20 MG/1 ML VIAL IV PRN (12:58)
[2016-12-13] MEDS: DILTIAZEM INJ 100 MG in SODIUM CHLORIDE 0.9% 100 ML IV SCH (13:00)
--- NOTE | 2016-12-13 16:16 | Hospitalist Progress Note ---
<Antonio Sorenson - Last Filed: 12/13/16 16:29> Assessment and Plan (1) Atrial flutter Status: Acute Assessment and plan: Pt. is rate controlled. On po dilt and sotalol. Cardiology following. Current Visit: Yes (2) Anxiety Status: Acute Current Visit: Yes (3) Essential hypertension Status: Chronic Assessment and plan: Adjusting blood pressure medicines. Current Visit: Yes (4) Unspecified sleep apnea Status: Acute Assessment and plan: Pt. had sleep study performed. Sleep medicine following. Current Visit: Yes Hospitalist: Subjective Interval history: Pt. seen today with Dr. Vora present. Family present is at the bedside. Pt is alert and oriented. No complaints voice. No acute distress noted. Pt. asked questions about course of therapy and questions were asked. Cardiology continues to follow. We will continue to monitor. Exam - Constitutional Vitals: Period Temp Pulse Resp BP Sys/Liang Pulse Ox Last 24 Hr 97.4 F-99.8 F 68-98 18-20 124-156/90-108 94-98 General appearance: no acute distress, over weight - Head Head exam: Present: normal inspection, normocephalic - Eye Eye exam: Present: EOMI Pupils: Present: JESICA - ENT ENT exam: Present: normal exam - Expanded ENT Exam Throat exam: Absent: post pharyngeal edema, post pharyngeal erythema - Respiratory Respiratory exam: Present: clear to auscultation bilaterally - Cardiovascular Cardiovascular exam: Present: irregular rhythm - GI/Abdominal GI/Abdominal exam: Present: normal bowel sounds, soft - Extremities Exam Extremities exam: Present: normal inspection, normal capillary refill, full ROM - Neurological Exam Neurological exam: Present: alert, oriented X3 - Psychiatric Psychiatric exam: Present: normal affect, anxious - Skin Skin exam: Present: normal color, warm, dry Results - Labs CBC & BMP: 12/13/16 04:51 12/13/16 04:51 Lab Results: I have reviewed the past 24 hour labs <Frankie Vora - Last Filed: 12/13/16 16:43> Assessment and Plan (1) Atrial flutter Status: Acute Current Visit: Yes (2) Essential hypertension Status: Chronic Current Visit: Yes Hospitalist: Subjective Interval history: Patient seen and examined along with TANYA Sorenson, agree with assessment and plan as documented. Continues with rate control. Exam - Constitutional Vitals: Period Temp Pulse Resp BP Sys/Liang Pulse Ox Last 24 Hr 97.4 F-99.8 F 68-98 18-20 124-165/86-108 94-98 Results - Labs CBC & BMP: 12/13/16 04:51 12/13/16 04:51
--- NOTE | 2016-12-13 17:40 | Sleep Medicine Progress Note ---
Assessment and Plan (1) Unspecified sleep apnea Status: Acute Assessment and plan: Patient's HST last night was technically unsuccessful. It will be repeated tonight. Current Visit: Yes (2) Essential hypertension Status: Chronic Assessment and plan: The prevalence rate for obstructive sleep apnea patients with hypertension is 35 %. That rate can be as high as 80% in patients who require 4 or more medications for blood pressure control. Current Visit: Yes (3) Atrial flutter with rapid ventricular response Status: Acute Assessment and plan: Uncontrolled sleep apnea can be a contributing factor to cardiac arrhythmias. Treating the underlying sleep apnea often can improve management of the arrhythmias. Current Visit: Yes Sleep Medicine Subjective Interval history: Patient admitted with atrial flutter with rapid ventricular response. He was seen by nurse practitioner Paige Reyes NP yesterday and set up for home sleep testing. This was attempted last night but was a technically inadequate study. Apparently 1 of the leads did not record. We will reevaluate him with repeat study tonight. He certainly does have symptoms of snoring and witnessed apneas consistent with sleep apnea. 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 He usually works from about 2:30 in the morning until about 10:50 AM. He will sleep in 2 periods from late afternoon and also in the late evening before going back to work, usually getting 8-9 hours of sleep daily. Exam (Progress Note) - Constitutional Vitals: Period Temp Pulse Resp BP Sys/Liang Pulse Ox Last 24 Hr 97.4 F-99.8 F 68-98 18-20 124-165/86-108 94-98 Exam: He is alert and responsive in no acute distress. Pupils equal round reactive to light and accommodation. Extraocular movements intact. Oropharynx with a class III Mallampati exam. Neck is supple without adenopathy or thyromegaly. No supraclavicular adenopathy is noted. Chest with good air movement and no focal wheeze, rhonchi, or rales. Cardiac exam reveals a regular rhythm without murmur or gallop. Abdomen soft nontender without palpable hepatosplenomegaly or mass. Extremities are without clubbing, cyanosis, or edema. Neurologically , he is grossly intact. Results - Labs CBC & BMP: 12/13/16 04:51 12/13/16 04:51 Lab Results: I have reviewed the past 24 hour labs Labs: Thyroid function studies have not been done and if hyperthyroidism has not been excluded, it should be.
[2016-12-13] MEDS ORDERED: CLORAZEPATE 7.5 MG TABLET PO PRN (18:33)
--- NOTE | 2016-12-13 18:49 | History and Physical Update ---
Sedation H&P Update - History and Physical H&P was reviewed, the patient examined and there: are no changes in the patients condition since last H&P was completed. - Dictation Physical: refer to scanned H&P - Physical Exam Mental Status: alert and oriented Heart: regular rate and rhythm Lung: clear to auscultation Abdomen: within normal limits Vitals: within normal limits - Sedation Patient Consent: Procedure disscussed with patient and patinet has consented., Risks and benefits were discussed with patient,including infection,, bleeding, injury to surrounding structures, seizure, temporary nerve, Patient understands and accepts potential risks/benefits and agrees to, proceed. ASA Class: II Airway Assessment: Class II: Soft palate, uvula, fauces visible
[2016-12-14 05:16] LABS: Basophils # 0.1 10*3/uL (0.0-0.2); Basophils % 0.7 % (0.0-0.8); Eosinophils # 0.3 10*3/uL (0.0-0.87); Eosinophils % 4.4 % (0.00-10.9); Hematocrit 42.3 VOL% (42.0-52.0); Hemoglobin 14.4 GM/DL (14.0-18.0); Immature Granulocytes % 0.3 %; Immature Granulocytes Absolute 0.02 #; Lymphocytes # 3.1 10*3/uL (1.4-4.0); Lymphocytes % 41.5 % (21.2-54.2); Mean Corpuscular Hemoglobin 29 PG (27-34); Mean Corpuscular Volume 85.8 FL (87-102); Mean Platelet Volume 10.6 FL (9.6-12.0); Monocytes # 0.7 10*3/uL (0.11-0.8); Monocytes % 9.5 % (1.7-12.7); Neutrophils # 3.3 10*3/uL (1.4-7.4); Neutrophils % 43.6 % (38.7-73.9); Platelet Count 226 T/CUMM (130-400); Red Blood Count 4.93 MC/CUMM (3.8-5.5); Red Cell Distribution Width 12.8 % (9.3-17.3); White Blood Count 7.6 T/CUMM (4-12)
[2016-12-14 06:02] LABS: Calcium 9.5 MG/DL (8.5-10.1); Magnesium 2.4 MG/DL (1.8-2.4); Osmolality,Calculated 285.1 MOS/KG (273-304); Potassium 3.9 MMOL/L (3.5-5.1)
--- NOTE | 2016-12-14 07:37 | EKG Report ---
Stationary ECG Study [facility] Test Date: 12/14/2016 7:38:16 AM Pat Name: AMRIE MURRELL Department: Room: 285 Gender: M Laboratory Technician: JAYLON : 1960 Requested by: Emery Hutchinson Order Number: [id number] Reading MD: WALT VASQUEZ Intervals [place] Rate: 90 P: 999 SC: 0 QRS: -1 QRSD: 91 T: 27 QT: 363 QTc: 411 Interpretive Statements ATRIAL FIBRILLATION Electronically Signed On 12-14-16 15:58:01 CDT by WALT VASQUEZ [email or web address]
[2016-12-14] MEDS ORDERED: PROPOFOL 200 MG/20 ML VIAL IV ONE (09:05)
--- NOTE | 2016-12-14 09:22 | Cardiology Operative Report ---
Date of Procedure:: 12/14/16 Procedure: The patient underwent SADI and cardioversion for atrial fibrillation. Anesthesia provided sedation for the procedure. The SADI showed no left atrial thrombus. Please see the full SADI report for details. We performed cardioversion with 360 J times one shock with successful conversion to sinus rhythm. There were no apparent problems or complications from the procedure. Anesthesia: other Surgeon / Physician: Eligio Fried Estimated blood loss: none Condition: stable
--- NOTE | 2016-12-14 09:50 | Anesthesia Post-Op ---
Anesthesia Post OP - Post Ansesthetic Evaluation Patient seen in post op: Yes Resp: within normal limits CV: within normal limits Mental: within normal limits Temp: within normal limits [id number]: within normal limits Nausea and Vomiting: within normal limits Pain: within normal limits
[2016-12-14] MEDS: ASCORBIC ACID 500 MG TABLET PO SCH (10:44)
[2016-12-14] MEDS: APIXABAN 5 MG TABLET PO SCH (10:44)
[2016-12-14] MEDS: SOTALOL 80 MG TABLET PO SCH (10:45)
[2016-12-14] MEDS: PANTOPRAZOLE 40 MG TABLET PO SCH (10:45)
--- NOTE | 2016-12-14 10:46 | EKG Report ---
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
--- NOTE | 2016-12-14 12:04 | Sleep Medicine Progress Note ---
Assessment and Plan (1) Unspecified sleep apnea Status: Acute Assessment and plan: This patient will be set up for outpatient diagnostic polysomnography to be done in a split-night fashion. Thank you for this consult. Current Visit: Yes (2) Essential hypertension Status: Chronic Current Visit: Yes (3) Atrial flutter with rapid ventricular response Status: Acute Current Visit: Yes Sleep Medicine Subjective Interval history: Patient did undergo home sleep testing last night and was found to have evidence of severe sleep apnea, having a respiratory event index of 56. His O2 desaturation with these events was mild to moderate. He did have a component suggestive of Pb-[place] respirations with some central events though predominantly obstructive overall. His insurance does not allow for acceptance of home sleep testing results and he will need to be formally evaluated in the sleep lab. I did confirm that his ejection fraction is within normal limits. We will set him up for outpatient sleep study at the next available date. All findings were discussed with him to his understanding. Exam (Progress Note) - Constitutional Vitals: Period Temp Pulse Resp BP Sys/Liang Pulse Ox Last 24 Hr 97.5 F-98.2 F 68-94 16-20 124-165/67-101 95-97 Exam: He is alert and responsive in no acute distress. Pupils equal round reactive to light and accommodation. Extraocular movements intact. Oropharynx with a class III Mallampati exam. Neck is supple without adenopathy or thyromegaly. No supraclavicular adenopathy is noted. Chest with good air movement and no focal wheeze, rhonchi, or rales. Cardiac exam reveals a regular rhythm without murmur or gallop. Abdomen soft nontender without palpable hepatosplenomegaly or mass. Extremities are without clubbing, cyanosis, or edema. Neurologically , he is grossly intact. Results - Labs CBC & BMP: 12/14/16 04:52 12/14/16 04:52 Lab Results: I have reviewed the past 24 hour labs
[2016-12-14 12:11] VITALS: BP 135/88
--- NOTE | 2016-12-14 12:25 | Cardiology Progress Note ---
Assessment and Plan - Time spent with patient Time spent with patient: Less than 30 minutes (1) Atrial flutter with rapid ventricular response Status: Acute Assessment and plan: See plan of care listed below. Current Visit: Yes (2) Essential hypertension Status: Chronic Assessment and plan: See plan of care listed below. Current Visit: Yes (3) Anxiety Status: Acute Current Visit: Yes Cardiology - PN: Subj Interval history: Cushion Builder: new to Dr. Garcia PCP: Dr. Umana SUMMARY: Mr. Ramos is a 56 y/o BM who was sent to our facility from Dr. Umana' s office for atrial flutter with rapid ventricular response. He was started on IV Diltiazem and admitted to hospital medicine. We were consulted to see him. 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 Dr. Garcia saw him last night in consultation and started him on Sotalol 80mg po BID. Sleep medicine was consulted for evaluation of possible sleep disorder. Echocardiogram on revealed EF 55-60%, mild LVH, mild MR, trace TR, mild NE. 2016 UPDATE: Mr. Ramos had an uneventful night. He was successfully cardioverted to normal sinus rhythm by Dr. Fried today. From cardiology standpoint, he may be discharged home to follow up with Dr. Garcia in 1-2 weeks. He will need to continue his Eliquis and Sotalol. Dr. Garcia to follow with further plan and addendum. ASSESSMENT/PLAN: 1. ATRIAL FLUTTER WITH RVR - Continue sotalol 80mg PO BID. Rate is much better controlled although he has not converted to sinus rhythm. Continue daily EKGs. S/p cardioversion. Maintaining NSR. QTC remains WNL. He was started on anticoagulation with Eliquis 5 mg p.o. twice daily. CHADSVASC score is 1. 2. HYPERTENSION - Has been mildly elevated. Continue Norvasc and increase dose to 10mg po daily.. We will continue to monitor and adjust as needed. Exam (Progress Note) - Constitutional Vitals: Period Temp Pulse Resp BP Sys/Liang Pulse Ox Last 24 Hr 97.5 F-98.2 F 58-94 16-20 124-165/67-101 95-97 Exam: General appearance: Pleasant and cooperative. Overweight, no acute distress. Head exam: Present: normal inspection, normocephalic, atraumatic. Absent: hematoma, laceration Eye exam: Present: EOMI. Absent: conjunctival injection, nystagmus, periorbital swelling, scleral icterus, laceration to eyelids Pupils: Present: PERRL. Absent: constricted, dilated, fixed, irregular, unequal ENT exam: Present: normal exam, normal external ear exam Neck exam: Present: normal inspection. Absent: lymphadenopathy, meningismus, tenderness, thyromegaly, carotid bruit Respiratory exam: Present: clear to auscultation bilaterally. Absent: accessory muscle use, chest wall tenderness, rales, rhonchi, wheezing. Cardiovascular exam: Present: Irregular rate and rhythm. Absent: gallop, JVD, rubs GI/Abdominal exam: Present: normal bowel sounds, soft. Absent: distended, firm , guarding, hernia, mass, tenderness, rebound. Extremities exam: Present: normal inspection, normal capillary refill. Upper extremity pulses 2+. Lower extremity pulses 2+. Absent: calf tenderness, edema Musculoskeletal: Present: No Fluid Collection, No Pain, Normal Range of Motion Back exam: Present: normal inspection. Absent: muscle spasm, vertebral tenderness Neurological exam: Present: alert, oriented X3, grossly intact without resting or essential tremor Psychiatric exam: Present: normal affect, normal mood Skin exam: Present: normal color, warm, dry, intact. Absent: cyanosis, diaphoretic, rash, urticaria Result/EKG - Labs CBC & BMP: 12/14/16 04:52 12/14/16 04:52 Lab Results: I have reviewed the past 24 hour labs Labs: Laboratory Results - last 24 hr 12/14/16 12/14/16 04:52 04:52 WBC 7.6 RBC 4.93 Hgb 14.4 Hct 42.3 MCV 85.8 L MCH 29 MCHC 34.0 RDW 12.8 Plt Count 226 MPV 10.6 Neut % (Auto) 43.6 Lymph % (Auto) 41.5 [place] % (Auto) 9.5 Eos % (Auto) 4.4 Baso % (Auto) 0.7 Neut # (Auto) 3.3 Lymph # (Auto) 3.1 [place] # (Auto) 0.7 Eos # (Auto) 0.3 Baso # (Auto) 0.1 Immature Gran % 0.3 Nucleated RBC % 0.0 Immature Gran # 0.02 Nucleated RBCs # 0.00 Immature Plt Fraction 0.0 Sodium 142 Potassium 3.9 Chloride 107 Carbon Dioxide 26 Anion Gap 12.9 BUN 22 H Creatinine 1.20 GFR Calculation 105 BUN/Creatinine Ratio 18.00 Glucose 94 Calculated Osmolality 285.1 Calcium 9.5 Magnesium 2.4 - EKG EKG results: interpreted by me, sinus rhythm Specialty Discharge - Follow Up or Referrals Follow up with: Vernon Garcia MD [Physician] - 2 Weeks (Follow up with Dr. Garcia in 1-2 weeks with EKG. Monitor BP and HR at home daily and bring log to follow up appointment with Dr. Garcia. )
--- NOTE | 2016-12-14 13:26 | Discharge Summary ---
Hospital Course - Hospital Course Hospital Course: Mr. Ramos is a 56 year old male with a past medical history significant for hypertension who presented to the ED today from his PCP's office for further evaluation of atrial flutter with RVR. He was started on cardizem infusion. Cardiology was consulted. He was started on sotalol and eliquis. Echocardiogram was performed showing a normal ejection fraction. SADI cardioversion was performed today, 12/14/16, with good results. Dr. Willis was consulted for a sleep evaluation, testing in hospital was positive for severe sleep apnea. He will need formal testing in order to qualify to Cpap with his insurance. He has now reached maximal benefit of inpatient stay and will be discharged to home. He will follow-up with cardiology and Dr. Willis as directed. - Time spent with patient Time with patient DS: Less than 30 minutes (25) Diagnosis - Discharge Diagnosis (1) Atrial flutter Status: Resolved (2) Essential hypertension Status: Chronic Specialty Discharge - Follow Up or Referrals Follow up with: Vernon Garcia MD [Physician] - 2 Weeks (Follow up with Dr. Garcia in 1-2 weeks with EKG. Monitor BP and HR at home daily and bring log to follow up appointment with Dr. Garcia. ) Discharge Plan - Discharge Data Disposition: Disch To Home/Self Care Condition at Discharge: Stable Discharge Diet: heart healthy Activity: increase activity as tolerated Hygiene: no restrictions Weight Bearing at Discharge: weight bear as tolerated Contact your physician if you experience:: Shortness of breath - Discharge Medications New Ascorbic Acid Tab [Vitamin C Tab] 1,000 mg PO BID #60 tablet Sotalol [Betapace] 80 mg PO BID #60 tablet Apixaban [Eliquis] 5 mg PO BID #60 tablet Continue Amlodipine Besylate 5 mg PO QAM Aspirin EC Tab 81 mg PO QOTHER DAY - Follow Up or Referral Follow Up: Vernon Garcia MD [Physician] - 2 Weeks (Follow up with Dr. Garcia in 1-2 weeks with EKG. Monitor BP and HR at home daily and bring log to follow up appointment with Dr. Garcia. ) - Forms/Instructions Exam - Constitutional Vitals: Period Temp Pulse Resp BP Sys/Liang Pulse Ox Last 24 Hr 97.5 F-98.2 F 58-94 16-20 124-165/67-101 95-97 General appearance: over weight - Head Head exam: Present: normocephalic, atraumatic - Eye Eye exam: Present: EOMI Pupils: Present: JESICA - ENT ENT exam: Present: normal exam - Neck Neck exam: Present: normal inspection - Respiratory Respiratory exam: Present: clear to auscultation bilaterally. Absent: rhonchi, wheezes - Cardiovascular Cardiovascular exam: Present: regular rate and rhythm - GI/Abdominal GI/Abdominal exam: Present: normal bowel sounds, soft. Absent: tenderness, rebound - Extremities Exam Extremities exam: Present: normal inspection - Back Exam Back exam: Present: normal inspection - Neurological Exam Neurological exam: Present: alert, oriented X3 - Psychiatric Psychiatric exam: Present: normal affect, normal mood - Skin Skin exam: Present: warm, intact Discharge Results Procedures and tests throughout hospitalization: Pending Orders 12/14/16 08:19 CL heart Routine 12/15/16 04:00 BMP w/ Mg [Basic Metabolic Panel w/Mg] IN AM Comp Blood Count Auto Diff IN AM Labs on day of discharge: Labs from last 24 hours 12/14/16 12/14/16 04:52 04:52 WBC 7.6 RBC 4.93 Hgb 14.4 Hct 42.3 MCV 85.8 L MCH 29 MCHC 34.0 RDW 12.8 Plt Count 226 MPV 10.6 Neut % (Auto) 43.6 Lymph % (Auto) 41.5 [place] % (Auto) 9.5 Eos % (Auto) 4.4 Baso % (Auto) 0.7 Neut # (Auto) 3.3 Lymph # (Auto) 3.1 [place] # (Auto) 0.7 Eos # (Auto) 0.3 Baso # (Auto) 0.1 Immature Gran % 0.3 Nucleated RBC % 0.0 Immature Gran # 0.02 Nucleated RBCs # 0.00 Immature Plt Fraction 0.0 Sodium 142 Potassium 3.9 Chloride 107 Carbon Dioxide 26 Anion Gap 12.9 BUN 22 H Creatinine 1.20 GFR Calculation 105 BUN/Creatinine Ratio 18.00 Glucose 94 Calculated Osmolality 285.1 Calcium 9.5 Magnesium 2.4 DS: Provider Date of admission: 12/11/16 15:19 Primary care physician: . No PCP Attending physician on admission: Frankie Vora MD Consults: 12/11/16 15:48 Consult to Physician [CONS] Routine Comment: atrial flutter c RVR Consulting Provider: Cardiology - [facility] Person Notified: Gertrudis Date Notified: 12/11/16 Time Notified: 17:25 12/11/16 16:57 Consult to Sleep Center [CONS] Routine Reason for Sleep Center: Sleep Center Physician Consult Comment: eval for possible sleep disorder, new onset aflutter Discharging clinician: Frankie Vora MD
[2016-12-14] MEDS: DILTIAZEM INJ 100 MG in SODIUM CHLORIDE 0.9% 100 ML IV SCH (14:39)
--- NOTE | 2016-12-14 16:31 | ECHO Report ---
Marzena Ramos Exam Date: 12/14/2016 09:00 Referring Physician: Technologist: Jina Fragoso Age: 56 Ht (in): Wt (lb): Gender: M Exam Location: [facility] Echo Pre-op Dx: cardioversion Post-op Dx: BP: / HR: Rhythm: Sinus Technical Quality: Specimens Taken Devices Implanted Medications Complications Estimated Blood Loss Proc. Components IMPRESSIONS Preserved left ventricular ejection fraction estimated at 50%. Mild mitral regurgitation. Mild tricuspid regurgitation. Grossly normal interatrial septum. Mild bilateral atrial enlargement. Left atrial appendage is well-visualized and free of thrombus. Successful cardioversion with 360 J shock 1 to normal sinus rhythm. MEASUREMENTS (Male / Female) Normal Values FINDINGS Left Ventricle Right Ventricle Right Atrium Left Atrium LA [place] IA Septum Mitral Valve Aortic Valve Tricuspid Valve Pulmonic Valve Pericardium Aorta Eligio Fried (Electronically Signed) Final Date: 14 December 2016 16:17
== END 2016-12-14 15:13 | disposition home or self-care (01) | DRG 310 ==
LOC: N.ED 12:22 → N.EDINP 12:22 → OBSVTOIN 15:19 → N.EDINP 17:05 → N.TELEN 17:20
PROVIDERS: ADMIT Internal Medicine; ATTEND Internal Medicine